=== PATIENT | male | born 1955 | race Two or more races ===

== ENCOUNTER 2022-06-15 17:52 | Inpatient (IN) | payer MEDICARE, MEDICAID ==
[~2022-06-15] VITALS: Ht 172.7 cm; Wt 120.2 kg
[2022-06-15] MEDS ORDERED: SODIUM CHLORIDE 0.9% 1000ML BAG (SEPSIS BOLUS) IV ONE (19:00)
[2022-06-15] MEDS ORDERED: VANCOMYCIN 1G PREMIX 200 ML IV ONE (19:00)
[2022-06-15] MEDS ORDERED: PIPERACILLIN/TAZ 3.375G PREMIX 50 ML IV ONE (19:00)
[2022-06-15 19:20] LABS: BASOPHILS % 1.7 % (0.0-2.0); EOSINOPHILS % 11.4 % (0.0-5.0); HEMATOCRIT. 37.1 % (42.0-52.0); HEMOGLOBIN. 12.5 g/dL (14.0-18.0); LYMPHOCYTES % 9.6 % (20.0-50.0); MEAN CORPUSCULAR VOLUME 86.4 fL (80.0-94.0); MEAN PLATELET VOLUME 9.4 fl (7.4-10.4); MONOCYTES % 7.1 % (2.0-8.0); NEUTROPHILS % 70.2 % (40.0-76.0); PLATELET 209 x1000/uL (130-400); RED BLOOD CELL COUNT 4.29 mill/uL (4.7-6.1); RED CELL DISTRIBUTION WIDTH 14.7 % (11.6-14.6)
[2022-06-15 19:31] LABS: PROTHROMBIN TIME 10.7 sec (9.6-11.0)
[2022-06-15] MEDS ORDERED: ONDANSETRON HCL 4MG/2ML INJ IV STA ×2 (19:33→22:27)
[2022-06-15] MEDS ORDERED: MORPHINE SULFATE 4 MG/ML CPJ (NOT FOR IM USE) IV STA ×2 (19:33→22:27)
[2022-06-15 19:38] LABS: CHLORIDE 98 mEq/L (98-107)
[2022-06-15 20:51] LABS: CLARITY URINE CLEAR (CLEAR); COLOR URINE YELLOW (YELLOW); SPECIFIC GRAVITY URINE 1.017 (1.005-1.030)
[2022-06-15 20:52] LABS: PROTEIN URINE 4+ (NEGATIVE)
[2022-06-15 20:53] LABS: KETONES URINE NEGATIVE (NEGATIVE)
[2022-06-15 20:54] LABS: LEUKOCYTE ESTERASE URINE NEGATIVE (NEGATIVE); NITRITE URINE NEGATIVE (NEGATIVE); OCCULT BLOOD URINE 2+ (NEGATIVE); UROBILINOGEN URINE 0.2 E.U./dL (0.2-1.0)
[2022-06-15] MEDS ORDERED: ASPIRIN 81MG TABLET PO ONE (23:45)
[2022-06-15] MEDS ORDERED: FUROSEMIDE 40MG/4ML VIAL IV ONE (23:45)
[2022-06-16] MEDS ORDERED: MORPHINE SULFATE 4 MG/ML CPJ (NOT FOR IM USE) IV ONE (01:00)
[2022-06-16] MEDS ORDERED: ACETAMINOPHEN 325MG TABLET PO ONE (01:00)
[2022-06-16] MEDS ORDERED: HYDRALAZINE 20MG/ML VIAL IV ONE (01:30)
[2022-06-16] MEDS ORDERED: IPRATROPIUM/ALBUTEROL 0.5-3(2.5)MG/3ML NEB HHN PRN (06:15)
[2022-06-16] MEDS ORDERED: ONDANSETRON HCL 4MG/2ML INJ IV PRN (06:15)
[2022-06-16] MEDS ORDERED: CLONIDINE 0.1MG TABLET PO PRN (06:15)
[2022-06-16] MEDS ORDERED: DIPHENHYDRAMINE 50MG/ML VIAL IV PRN (06:15)
[2022-06-16] MEDS ORDERED: GUAIFENESIN 200MG/10ML SUGAR FREE UDC PO PRN (06:15)
[2022-06-16] MEDS ORDERED: ACETAMINOPHEN 325MG TABLET PO PRN ×2 (06:15)
[2022-06-16] MEDS ORDERED: DOCUSATE SODIUM 100MG CAPSULE PO PRN (06:15)
[2022-06-16] MEDS ORDERED: MAGNESIUM/ALUMINUM HYDROXIDE/SIMETHICONE 30ML UDC PO PRN (06:15)
[2022-06-16] MEDS ORDERED: DEXTROSE 50% WATER 50ML SYRINGE IV PRN (06:30)
[2022-06-16 07:05] LABS: BASOPHILS % 1.2 % (0.0-2.0); EOSINOPHILS % 14.6 % (0.0-5.0); HEMATOCRIT. 36.3 % (42.0-52.0); HEMOGLOBIN. 12.1 g/dL (14.0-18.0); LYMPHOCYTES % 9.7 % (20.0-50.0); MEAN CORPUSCULAR VOLUME 87.2 fL (80.0-94.0); MEAN PLATELET VOLUME 9.2 fl (7.4-10.4); MONOCYTES % 7.3 % (2.0-8.0); NEUTROPHILS % 67.2 % (40.0-76.0); PLATELET 188 x1000/uL (130-400); RED BLOOD CELL COUNT 4.16 mill/uL (4.7-6.1); RED CELL DISTRIBUTION WIDTH 14.8 % (11.6-14.6)
[2022-06-16 07:12] LABS: CHLORIDE 103 mEq/L (98-107)
[2022-06-16 07:19] LABS: PHOSPHORUS 3.5 mg/dL (2.5-4.9); TOTAL IRON BINDING CAPACITY 212 ug/dL (250-450)
[2022-06-16 08:10] LABS: T4 FREE 1.04 ng/dL (0.76-1.46)
[2022-06-16] MEDS: MORPHINE SULFATE 2 MG/ML CPJ (NOT FOR IM USE) IV PRN ×3 (08:18→20:56)
[2022-06-16] MEDS ORDERED: PIPERACILLIN/TAZ 3.375G PREMIX 50 ML IV SCH (09:00)
[2022-06-16] MEDS: FUROSEMIDE 40MG/4ML VIAL IVP SCH (09:49)
[2022-06-16] MEDS: INSULIN LISPRO 100 UNITS/ML SUBCUT SCH ×4 (09:51→20:56)
[2022-06-16] MEDS ORDERED: VANCOMYCIN 750MG PMX (XELLIA) 150 ML IV SCH ×2 (10:00→20:00)
[2022-06-16] MEDS: BLOOD SUGAR DIAGNOSTIC STRIP TEST SCH ×3 (13:00→20:56)
[2022-06-16] MEDS: ENOXAPARIN 40MG/0.4ML SYR SUBCUT SCH (14:17)
[2022-06-16] MEDS: AMLODIPINE 10MG TABLET PO SCH (14:18)
[2022-06-16] MEDS: ASPIRIN 81MG TABLET PO SCH (14:18)
[2022-06-16] MEDS: PANTOPRAZOLE 40MG DR TABLET PO SCH (14:18)
[2022-06-16 14:39] VITALS: BP 145/75
[2022-06-16 16:00] VITALS: BP 148/62
[2022-06-16] MEDS ORDERED: CEFTRIAXONE 2 G PREMIX 50 ML IV SCH (16:45)
[2022-06-16] MEDS: CEFTRIAXONE 2 G in DEXTROSE 5% WATER 50 ML IV SCH (19:02)
[2022-06-16 20:00] VITALS: BP 139/65
[2022-06-17] VITALS: BP 152/60
[2022-06-17] MEDS: MORPHINE SULFATE 2 MG/ML CPJ (NOT FOR IM USE) IV PRN ×4 (02:12→20:50)
[2022-06-17 04:00] VITALS: BP 153/67
[2022-06-17] MEDS: BLOOD SUGAR DIAGNOSTIC STRIP TEST SCH ×4 (07:40→21:00)
[2022-06-17 08:00] VITALS: BP 162/77
[2022-06-17] MEDS: AMLODIPINE 10MG TABLET PO SCH (08:53)
[2022-06-17] MEDS: PANTOPRAZOLE 40MG DR TABLET PO SCH (08:53)
[2022-06-17] MEDS: ASPIRIN 81MG TABLET PO SCH (08:53)
[2022-06-17] MEDS: FUROSEMIDE 40MG/4ML VIAL IVP SCH (08:55)
[2022-06-17] MEDS: INSULIN LISPRO 100 UNITS/ML SUBCUT SCH ×6 (08:55→21:20)
[2022-06-17] MEDS: ENOXAPARIN 40MG/0.4ML SYR SUBCUT SCH (08:56)
[2022-06-17 12:00] VITALS: BP 141/67
[2022-06-17] MEDS ORDERED: VANCOMYCIN 500MG PREMIX 100 ML IV SCH (12:00)
[2022-06-17 14:36] LABS: EOSINOPHILS % 4.3 % (0.0-5.0); HEMATOCRIT. 36.4 % (42.0-52.0); HEMOGLOBIN. 12.3 g/dL (14.0-18.0); LYMPHOCYTES % 8.6 % (20.0-50.0); MEAN CORPUSCULAR HEMOGLOBIN 29.5 pg (28.0-32.0); MEAN CORPUSCULAR VOLUME 87.3 fL (80.0-94.0); MEAN PLATELET VOLUME 9.2 fl (7.4-10.4); MONOCYTES % 5.8 % (2.0-8.0); NEUTROPHILS % 80.3 % (40.0-76.0); PLATELET 227 x1000/uL (130-400); RED BLOOD CELL COUNT 4.17 mill/uL (4.7-6.1); RED CELL DISTRIBUTION WIDTH 15.6 % (11.6-14.6)
[2022-06-17 15:08] LABS: CHLORIDE 102 mEq/L (98-107)
[2022-06-17 16:00] VITALS: BP 143/71
[2022-06-17] MEDS: CEFTRIAXONE 2 G in DEXTROSE 5% WATER 50 ML IV SCH (17:36)
[2022-06-17 17:44] LABS: CREATINE KINASE 119 IU/L (39-308)
[2022-06-17 20:00] VITALS: BP 153/78
[2022-06-17] MEDS ORDERED: ZOLPIDEM TARTRATE 5MG TABLET PO PRN (21:00)
[2022-06-18] VITALS: BP 153/71
[2022-06-18] MEDS: MORPHINE SULFATE 2 MG/ML CPJ (NOT FOR IM USE) IV PRN ×6 (01:20→22:41)
[2022-06-18 04:00] VITALS: BP 158/76
[2022-06-18] MEDS: BLOOD SUGAR DIAGNOSTIC STRIP TEST SCH ×4 (06:40→21:00)
[2022-06-18 08:00] VITALS: BP 161/83
[2022-06-18 08:29] LABS: BASOPHILS % 0.9 % (0.0-2.0); EOSINOPHILS % 7.9 % (0.0-5.0); HEMATOCRIT. 36.9 % (42.0-52.0); HEMOGLOBIN. 12.2 g/dL (14.0-18.0); LYMPHOCYTES % 8.6 % (20.0-50.0); MEAN CORPUSCULAR HEMOGLOBIN 28.6 pg (28.0-32.0); MEAN CORPUSCULAR VOLUME 86.6 fL (80.0-94.0); MEAN PLATELET VOLUME 9.6 fl (7.4-10.4); MONOCYTES % 7.8 % (2.0-8.0); NEUTROPHILS % 74.8 % (40.0-76.0); PLATELET 200 x1000/uL (130-400); RED BLOOD CELL COUNT 4.26 mill/uL (4.7-6.1); RED CELL DISTRIBUTION WIDTH 15.2 % (11.6-14.6)
[2022-06-18] MEDS: ASPIRIN 81MG TABLET PO SCH (08:29)
[2022-06-18] MEDS: FAMOTIDINE 20MG TABLET PO SCH (08:29)
[2022-06-18] MEDS: ENOXAPARIN 40MG/0.4ML SYR SUBCUT SCH (08:29)
[2022-06-18] MEDS: FUROSEMIDE 40MG/4ML VIAL IVP SCH (08:30)
[2022-06-18] MEDS: AMLODIPINE 10MG TABLET PO SCH (08:31)
[2022-06-18] MEDS: INSULIN LISPRO 100 UNITS/ML SUBCUT SCH ×7 (08:33→22:42)
[2022-06-18 08:51] LABS: CHLORIDE 101 mEq/L (98-107)
[2022-06-18] MEDS ORDERED: VANCOMYCIN 1.25GM PMX (XELLIA) 250 ML IV SCH (10:00)
[2022-06-18 12:00] VITALS: BP 158/74
[2022-06-18 16:00] VITALS: BP 150/65
[2022-06-18] MEDS: CEFTRIAXONE 2 G in DEXTROSE 5% WATER 50 ML IV SCH (17:04)
[2022-06-18] MEDS ORDERED: NALOXONE HCL 0.4MG/ML VIAL IV PRN (18:15)
[2022-06-18 20:00] VITALS: BP 141/73
[2022-06-19] VITALS: BP 165/72
[2022-06-19] MEDS: MORPHINE SULFATE 2 MG/ML CPJ (NOT FOR IM USE) IV PRN ×2 (02:41→07:08)
[2022-06-19 04:00] VITALS: BP 152/72
[2022-06-19 06:34] LABS: EOSINOPHILS % 9.1 % (0.0-5.0); HEMATOCRIT. 39.3 % (42.0-52.0); MEAN CORPUSCULAR HEMOGLOBIN 28.7 pg (28.0-32.0); MEAN CORPUSCULAR VOLUME 86.3 fL (80.0-94.0); MEAN PLATELET VOLUME 9.7 fl (7.4-10.4); MONOCYTES % 7.7 % (2.0-8.0); NEUTROPHILS % 72.2 % (40.0-76.0); PLATELET 222 x1000/uL (130-400); RED BLOOD CELL COUNT 4.55 mill/uL (4.7-6.1); RED CELL DISTRIBUTION WIDTH 15.3 % (11.6-14.6)
[2022-06-19 07:19] LABS: CHLORIDE 101 mEq/L (98-107)
[2022-06-19 08:00] VITALS: BP 143/81
[2022-06-19] MEDS: AMLODIPINE 10MG TABLET PO SCH (08:49)
[2022-06-19] MEDS: ASPIRIN 81MG TABLET PO SCH (08:49)
[2022-06-19] MEDS: FUROSEMIDE 40MG/4ML VIAL IVP SCH (08:49)
[2022-06-19] MEDS: FAMOTIDINE 20MG TABLET PO SCH (08:49)
[2022-06-19] MEDS: INSULIN LISPRO 100 UNITS/ML SUBCUT SCH ×7 (08:55→21:11)
[2022-06-19] MEDS: BLOOD SUGAR DIAGNOSTIC STRIP TEST SCH ×4 (08:57→21:11)
[2022-06-19] MEDS: ENOXAPARIN 40MG/0.4ML SYR SUBCUT SCH (09:23)
[2022-06-19] MEDS ORDERED: CARVEDILOL 3.125 MG TABLET PO ONE (11:00)
[2022-06-19] MEDS ORDERED: ENOXAPARIN 80MG/0.8ML SYR SUBCUT NR (11:30)
[2022-06-19 12:00] VITALS: BP 147/93
[2022-06-19] MEDS ORDERED: DILTIAZEM HCL 30MG TABLET PO SCH (12:00)
[2022-06-19] MEDS: MAGNESIUM OXIDE 400MG TABLET PO SCH (12:44)
[2022-06-19] MEDS ORDERED: VANCOMYCIN 750MG PREMIX 150 ML IV NR (13:00)
[2022-06-19] MEDS: HYDROCODONE/ACETAMINOPHEN 5/325MG TABLET PO PRN ×2 (13:01→21:08)
[2022-06-19] MEDS ORDERED: CARVEDILOL 3.125 MG TABLET PO SCH (13:30)
[2022-06-19] MEDS: DILTIAZEM HCL 60MG TABLET PO SCH ×2 (13:53→21:07)
[2022-06-19 16:00] VITALS: BP 134/59
[2022-06-19] MEDS: CEFTRIAXONE 2 G in DEXTROSE 5% WATER 50 ML IV SCH (17:37)
[2022-06-19 20:00] VITALS: BP 131/63
[2022-06-19] MEDS: ATORVASTATIN CALCIUM 10MG TABLET PO SCH (21:08)
[2022-06-19] MEDS: CARVEDILOL 3.125 MG TABLET PO SCH (21:10)
[2022-06-19] MEDS: INSULIN GLARGINE 100 UNITS/ML SUBCUT SCH (21:12)
[2022-06-20] VITALS: BP 153/77
[2022-06-20] MEDS: MORPHINE SULFATE 2 MG/ML CPJ (NOT FOR IM USE) IV PRN ×4 (01:08→19:28)
[2022-06-20] MEDS: DILTIAZEM HCL 60MG TABLET PO SCH ×3 (05:55→21:25)
[2022-06-20] MEDS: INSULIN LISPRO 100 UNITS/ML SUBCUT SCH ×6 (06:12→21:24)
[2022-06-20] MEDS: BLOOD SUGAR DIAGNOSTIC STRIP TEST SCH ×4 (06:14→21:25)
[2022-06-20] MEDS ORDERED: LIDOCAINE HCL/PF 1% 10 MG/ML 5ML VIAL ONE ×2 (07:53→10:03)
[2022-06-20 08:00] VITALS: BP 146/65
[2022-06-20 08:04] LABS: EOSINOPHILS % 13.1 % (0.0-5.0); HEMATOCRIT. 35.2 % (42.0-52.0); HEMOGLOBIN. 11.8 g/dL (14.0-18.0); LYMPHOCYTES % 8.4 % (20.0-50.0); MEAN CORPUSCULAR HEMOGLOBIN 28.9 pg (28.0-32.0); MEAN CORPUSCULAR VOLUME 85.8 fL (80.0-94.0); MEAN PLATELET VOLUME 8.9 fl (7.4-10.4); MONOCYTES % 7.6 % (2.0-8.0); NEUTROPHILS % 67.9 % (40.0-76.0); PLATELET 244 x1000/uL (130-400); RED CELL DISTRIBUTION WIDTH 15.4 % (11.6-14.6)
[2022-06-20 08:25] LABS: CHLORIDE 100 mEq/L (98-107)
[2022-06-20] MEDS: FAMOTIDINE 20MG TABLET PO SCH (09:00)
[2022-06-20] MEDS: MAGNESIUM OXIDE 400MG TABLET PO SCH (09:00)
[2022-06-20] MEDS: ASPIRIN 81MG TABLET PO SCH (09:00)
[2022-06-20] MEDS: FUROSEMIDE 40MG/4ML VIAL IVP SCH (09:25)
[2022-06-20] MEDS: CARVEDILOL 3.125 MG TABLET PO SCH ×2 (09:25→21:26)
[2022-06-20] MEDS: ENOXAPARIN 120MG/0.8ML SYR SUBCUT SCH (11:00)
[2022-06-20 12:00] VITALS: BP 136/71
[2022-06-20 13:29] VITALS: BP 136/71
[2022-06-20 16:00] VITALS: BP 139/65
[2022-06-20] MEDS: CEFTRIAXONE 2 G in DEXTROSE 5% WATER 50 ML IV SCH (18:42)
[2022-06-20 20:00] VITALS: BP 138/73
[2022-06-20] MEDS: ATORVASTATIN CALCIUM 10MG TABLET PO SCH (21:25)
[2022-06-20] MEDS: INSULIN GLARGINE 100 UNITS/ML SUBCUT SCH (21:25)
[2022-06-20] MEDS: HYDROCODONE/ACETAMINOPHEN 5/325MG TABLET PO PRN (23:23)
[2022-06-21] VITALS: BP 143/73
[2022-06-21] MEDS: MORPHINE SULFATE 2 MG/ML CPJ (NOT FOR IM USE) IV PRN ×3 (03:38→21:06)
[2022-06-21 04:00] VITALS: BP 145/75
[2022-06-21] MEDS: DILTIAZEM HCL 60MG TABLET PO SCH ×3 (05:30→20:47)
[2022-06-21] MEDS: BLOOD SUGAR DIAGNOSTIC STRIP TEST SCH ×4 (07:40→20:48)
[2022-06-21] MEDS: INSULIN LISPRO 100 UNITS/ML SUBCUT SCH ×7 (07:40→20:47)
[2022-06-21 08:00] VITALS: BP 141/70
[2022-06-21] MEDS: MAGNESIUM OXIDE 400MG TABLET PO SCH (09:00)
[2022-06-21] MEDS: FAMOTIDINE 20MG TABLET PO SCH (09:00)
[2022-06-21] MEDS: ASPIRIN 81MG TABLET PO SCH (09:00)
[2022-06-21] MEDS: CARVEDILOL 3.125 MG TABLET PO SCH ×2 (09:00→20:31)
[2022-06-21] MEDS: FUROSEMIDE 40MG/4ML VIAL IVP SCH (09:14)
[2022-06-21] MEDS ORDERED: BUPIVACAINE HCL/PF 0.5% (5MG/ML) 10ML ONE (12:11)
[2022-06-21] MEDS ORDERED: LIDOCAINE HCL 1% 10 MG/ML 10ML VIAL ONE (12:11)
[2022-06-21] MEDS ORDERED: POLYMYXIN B SULFATE 500000 UNITS/VIAL ONE (12:11)
[2022-06-21] MEDS ORDERED: VANCOMYCIN 500MG PREMIX 100 ML IV NR (13:00)
[2022-06-21] MEDS ORDERED: PROPOFOL 200MG/20ML VIAL IV ONE (13:41)
[2022-06-21] MEDS ORDERED: FENTANYL CITRATE/PF 50MCG/ML 5ML VIAL ONE (13:41)
[2022-06-21 14:24] LABS: CREATINE KINASE 88 IU/L (39-308)
[2022-06-21] MEDS ORDERED: ONDANSETRON HCL 4MG/2ML INJ IV NR (14:45)
[2022-06-21] MEDS ORDERED: FENTANYL CITRATE/PF 50MCG/ML 2ML VIAL IV PRN (14:45)
[2022-06-21 16:45] VITALS: BP 156/89
[2022-06-21] MEDS: ENOXAPARIN 120MG/0.8ML SYR SUBCUT SCH (16:48)
[2022-06-21] MEDS: SODIUM CHLORIDE 0.45% 1,000 ML IV SCH ×2 (16:49→20:45)
[2022-06-21] MEDS: CEFTRIAXONE 2 G in DEXTROSE 5% WATER 50 ML IV SCH (17:45)
[2022-06-21 20:00] VITALS: BP 136/75
[2022-06-21] MEDS: HYDROCODONE/ACETAMINOPHEN 5/325MG TABLET PO PRN (20:31)
[2022-06-21] MEDS: ATORVASTATIN CALCIUM 10MG TABLET PO SCH (20:45)
[2022-06-21] MEDS: INSULIN GLARGINE 100 UNITS/ML SUBCUT SCH (20:47)
[2022-06-22] VITALS: BP 145/70
[2022-06-22] MEDS: MORPHINE SULFATE 2 MG/ML CPJ (NOT FOR IM USE) IV PRN ×3 (01:21→12:30)
[2022-06-22] MEDS: HYDROCODONE/ACETAMINOPHEN 5/325MG TABLET PO PRN ×4 (01:54→22:00)
[2022-06-22 04:00] VITALS: BP 155/66
[2022-06-22] MEDS: DILTIAZEM HCL 60MG TABLET PO SCH ×3 (05:29→21:47)
[2022-06-22] MEDS: BLOOD SUGAR DIAGNOSTIC STRIP TEST SCH ×4 (05:50→21:00)
[2022-06-22 08:00] VITALS: BP 146/71
[2022-06-22] MEDS: INSULIN LISPRO 100 UNITS/ML SUBCUT SCH ×7 (08:30→22:01)
[2022-06-22] MEDS: FAMOTIDINE 20MG TABLET PO SCH (08:31)
[2022-06-22] MEDS: MAGNESIUM OXIDE 400MG TABLET PO SCH (08:31)
[2022-06-22] MEDS: ASPIRIN 81MG TABLET PO SCH (08:31)
[2022-06-22] MEDS: CARVEDILOL 3.125 MG TABLET PO SCH ×2 (08:31→21:49)
[2022-06-22 09:44] LABS: BASOPHILS % 1.5 % (0.0-2.0); HEMATOCRIT. 35.1 % (42.0-52.0); HEMOGLOBIN. 11.5 g/dL (14.0-18.0); LYMPHOCYTES % 9.1 % (20.0-50.0); MEAN CORPUSCULAR HEMOGLOBIN 28.3 pg (28.0-32.0); MEAN CORPUSCULAR VOLUME 86.2 fL (80.0-94.0); MEAN PLATELET VOLUME 8.4 fl (7.4-10.4); MONOCYTES % 8.4 % (2.0-8.0); PLATELET 246 x1000/uL (130-400); RED BLOOD CELL COUNT 4.07 mill/uL (4.7-6.1); RED CELL DISTRIBUTION WIDTH 15.3 % (11.6-14.6)
[2022-06-22] MEDS: ENOXAPARIN 120MG/0.8ML SYR SUBCUT SCH ×2 (11:00→11:33)
[2022-06-22] MEDS: SODIUM CHLORIDE 0.45% 1,000 ML IV SCH (11:33)
[2022-06-22 12:00] VITALS: BP 152/75
[2022-06-22] MEDS ORDERED: CEFT2PIG IV (14:10)
[2022-06-22] MEDS ORDERED: COR3 PO (14:56)
[2022-06-22] MEDS ORDERED: INSU100I68 SQ (14:56)
[2022-06-22] MEDS ORDERED: INSU100I28 SQ (14:56)
[2022-06-22] MEDS ORDERED: ASPI-1160 PO (14:56)
[2022-06-22] MEDS ORDERED: ATOR10TA PO (14:56)
[2022-06-22] MEDS ORDERED: DILT60TA35 PO (14:56)
[2022-06-22 16:00] VITALS: BP 147/68
[2022-06-22] MEDS: CEFTRIAXONE 2 G in DEXTROSE 5% WATER 50 ML IV SCH (18:09)
[2022-06-22 20:00] VITALS: BP 145/71
[2022-06-22] MEDS: ATORVASTATIN CALCIUM 10MG TABLET PO SCH (21:48)
[2022-06-22] MEDS: INSULIN GLARGINE 100 UNITS/ML SUBCUT SCH (22:01)
[2022-06-23] VITALS: BP 148/68
[2022-06-23] MEDS: SODIUM CHLORIDE 0.45% 1,000 ML IV SCH ×2 (02:27→17:50)
[2022-06-23] MEDS: MORPHINE SULFATE 2 MG/ML CPJ (NOT FOR IM USE) IV PRN ×3 (02:35→21:19)
[2022-06-23 04:00] VITALS: BP 151/73
[2022-06-23] MEDS: DILTIAZEM HCL 60MG TABLET PO SCH ×3 (06:10→21:52)
[2022-06-23] MEDS: BLOOD SUGAR DIAGNOSTIC STRIP TEST SCH ×4 (07:40→21:00)
[2022-06-23 08:00] VITALS: BP 140/65
[2022-06-23] MEDS: ASPIRIN 81MG TABLET PO SCH (08:34)
[2022-06-23] MEDS: FAMOTIDINE 20MG TABLET PO SCH (08:34)
[2022-06-23] MEDS: CARVEDILOL 3.125 MG TABLET PO SCH ×2 (08:34→21:00)
[2022-06-23] MEDS: INSULIN LISPRO 100 UNITS/ML SUBCUT SCH ×7 (08:35→21:00)
[2022-06-23] MEDS: MAGNESIUM OXIDE 400MG TABLET PO SCH (08:37)
[2022-06-23] MEDS: ENOXAPARIN 120MG/0.8ML SYR SUBCUT SCH (11:00)
[2022-06-23] MEDS: HYDROCODONE/ACETAMINOPHEN 5/325MG TABLET PO PRN ×2 (11:14→17:49)
[2022-06-23 12:00] VITALS: BP 145/70
[2022-06-23 15:49] LABS: BASOPHILS % 1.8 % (0.0-2.0); EOSINOPHILS % 11.9 % (0.0-5.0); HEMATOCRIT. 35.3 % (42.0-52.0); HEMOGLOBIN. 11.9 g/dL (14.0-18.0); LYMPHOCYTES % 9.1 % (20.0-50.0); MEAN CORPUSCULAR HEMOGLOBIN 28.9 pg (28.0-32.0); MEAN CORPUSCULAR VOLUME 85.6 fL (80.0-94.0); MEAN PLATELET VOLUME 8.2 fl (7.4-10.4); MONOCYTES % 9.2 % (2.0-8.0); PLATELET 259 x1000/uL (130-400); RED BLOOD CELL COUNT 4.12 mill/uL (4.7-6.1); RED CELL DISTRIBUTION WIDTH 15.1 % (11.6-14.6)
[2022-06-23 16:00] VITALS: BP 141/79
[2022-06-23] MEDS ORDERED: CEFTRIAXONE 2 G PREMIX 50 ML IV SCH (18:00)
[2022-06-23] MEDS: CEFTRIAXONE 2 G in DEXTROSE 5% WATER 50 ML IV SCH (18:24)
[2022-06-23 20:00] VITALS: BP 145/76
[2022-06-23] MEDS: ATORVASTATIN CALCIUM 10MG TABLET PO SCH (21:00)
[2022-06-23] MEDS: INSULIN GLARGINE 100 UNITS/ML SUBCUT SCH (21:52)
[2022-06-24] VITALS (8 sets, daily range): BP systolic 133–189; BP diastolic 57–78
[2022-06-24] MEDS: MORPHINE SULFATE 2 MG/ML CPJ (NOT FOR IM USE) IV PRN ×2 (01:42→21:00)
[2022-06-24] MEDS: DILTIAZEM HCL 60MG TABLET PO SCH ×3 (06:00→21:46)
[2022-06-24] MEDS: BLOOD SUGAR DIAGNOSTIC STRIP TEST SCH ×4 (06:43→21:00)
[2022-06-24] MEDS: INSULIN LISPRO 100 UNITS/ML SUBCUT SCH ×7 (07:40→21:45)
[2022-06-24 08:22] LABS: BASOPHILS % 1.5 % (0.0-2.0); EOSINOPHILS % 10.3 % (0.0-5.0); HEMATOCRIT. 35.7 % (42.0-52.0); LYMPHOCYTES % 10.5 % (20.0-50.0); MEAN PLATELET VOLUME 8.5 fl (7.4-10.4); MONOCYTES % 7.4 % (2.0-8.0); NEUTROPHILS % 70.3 % (40.0-76.0); PLATELET 293 x1000/uL (130-400); RED BLOOD CELL COUNT 4.15 mill/uL (4.7-6.1); RED CELL DISTRIBUTION WIDTH 15.5 % (11.6-14.6)
[2022-06-24] MEDS: FAMOTIDINE 20MG TABLET PO SCH (08:49)
[2022-06-24] MEDS: ASPIRIN 81MG TABLET PO SCH (08:49)
[2022-06-24] MEDS: MAGNESIUM OXIDE 400MG TABLET PO SCH (08:50)
[2022-06-24] MEDS: CARVEDILOL 3.125 MG TABLET PO SCH ×2 (08:50→21:44)
[2022-06-24] MEDS: ENOXAPARIN 120MG/0.8ML SYR SUBCUT SCH (11:38)
[2022-06-24] MEDS: SODIUM CHLORIDE 0.45% 1,000 ML IV SCH (11:39)
[2022-06-24] MEDS: CEFTRIAXONE 2 G in DEXTROSE 5% WATER 50 ML IV SCH (17:22)
[2022-06-24] MEDS: ATORVASTATIN CALCIUM 10MG TABLET PO SCH (21:44)
[2022-06-24] MEDS: INSULIN GLARGINE 100 UNITS/ML SUBCUT SCH (21:45)
[2022-06-25] VITALS: BP 154/78
[2022-06-25] MEDS: MORPHINE SULFATE 2 MG/ML CPJ (NOT FOR IM USE) IV PRN ×2 (02:40→06:45)
[2022-06-25] MEDS: DILTIAZEM HCL 60MG TABLET PO SCH (06:00)
[2022-06-25] MEDS: SODIUM CHLORIDE 0.45% 1,000 ML IV SCH (06:28)
[2022-06-25] MEDS: INSULIN LISPRO 100 UNITS/ML SUBCUT SCH ×4 (07:40→13:21)
[2022-06-25] MEDS: BLOOD SUGAR DIAGNOSTIC STRIP TEST SCH ×2 (07:47→12:59)
[2022-06-25 08:00] VITALS: BP 158/97
[2022-06-25] MEDS: ASPIRIN 81MG TABLET PO SCH (08:20)
[2022-06-25] MEDS: FAMOTIDINE 20MG TABLET PO SCH (08:20)
[2022-06-25] MEDS: MAGNESIUM OXIDE 400MG TABLET PO SCH (08:20)
[2022-06-25] MEDS: CARVEDILOL 3.125 MG TABLET PO SCH (08:21)
[2022-06-25] MEDS: HYDROCODONE/ACETAMINOPHEN 5/325MG TABLET PO PRN (09:56)
[2022-06-25] MEDS: ENOXAPARIN 120MG/0.8ML SYR SUBCUT SCH (09:56)
[2022-06-25 10:40] LABS: BASOPHILS % 1.8 % (0.0-2.0); EOSINOPHILS % 9.4 % (0.0-5.0); HEMATOCRIT. 37.5 % (42.0-52.0); HEMOGLOBIN. 12.5 g/dL (14.0-18.0); LYMPHOCYTES % 10.3 % (20.0-50.0); MEAN CORPUSCULAR HEMOGLOBIN 28.3 pg (28.0-32.0); MEAN CORPUSCULAR VOLUME 85.1 fL (80.0-94.0); MEAN PLATELET VOLUME 8.3 fl (7.4-10.4); NEUTROPHILS % 69.5 % (40.0-76.0); PLATELET 297 x1000/uL (130-400); RED BLOOD CELL COUNT 4.41 mill/uL (4.7-6.1); RED CELL DISTRIBUTION WIDTH 15.6 % (11.6-14.6)
[2022-06-25 12:00] VITALS: BP 150/77
[2022-06-26] MEDS ORDERED: ENOXAPARIN 120MG/0.8ML SYR SUBCUT SCH (11:00)
== END 2022-06-25 14:10 | DRG 637 ==
LOC: ER 17:52 → 7WST 06-16 01:26 → EDBEDREQ 06-16 01:42 → EDBEDREQTM 06-16 01:42
PROVIDERS: ADMIT Hospitalist; ATTEND Hospitalist
PROC: 05HY33Z Insertion of Infusion Device into Upper Vein, Percutaneous Approach (ICD-10-PCS; 2022-06-20)
PROC: 0Y9M0ZZ Drainage of Right Foot, Open Approach (ICD-10-PCS; principal; 2022-06-21)
PROC: 0Y9M0ZX Drainage of Right Foot, Open Approach, Diagnostic (ICD-10-PCS; 2022-06-21)
DX: E11.69 Type 2 diabetes mellitus with other specified complication (principal); E43 Unspecified severe protein-calorie malnutrition; L03.115 Cellulitis of right lower limb; L03.116 Cellulitis of left lower limb; I13.0 Hypertensive heart and chronic kidney disease with heart failure and stage 1 through stage 4 chronic kidney disease, or unspecified chronic kidney disease; I48.92 Unspecified atrial flutter; M86.171 Other acute osteomyelitis, right ankle and foot; Z68.41 Body mass index [BMI] 40.0-44.9, adult; E11.621 Type 2 diabetes mellitus with foot ulcer; N17.0 Acute kidney failure with tubular necrosis; E11.65 Type 2 diabetes mellitus with hyperglycemia; N18.4 Chronic kidney disease, stage 4 (severe); E11.22 Type 2 diabetes mellitus with diabetic chronic kidney disease; E11.40 Type 2 diabetes mellitus with diabetic neuropathy, unspecified; E66.01 Morbid (severe) obesity due to excess calories; I50.9 Heart failure, unspecified; I16.0 Hypertensive urgency; I25.10 Atherosclerotic heart disease of native coronary artery without angina pectoris; E83.42 Hypomagnesemia; I89.0 Lymphedema, not elsewhere classified; D63.1 Anemia in chronic kidney disease; L97.519 Non-pressure chronic ulcer of other part of right foot with unspecified severity; E03.8 Other specified hypothyroidism; E03.9 Hypothyroidism, unspecified; E66.09 Other obesity due to excess calories; G47.33 Obstructive sleep apnea (adult) (pediatric); I48.0 Paroxysmal atrial fibrillation; Z95.1 Presence of aortocoronary bypass graft; Z87.891 Personal history of nicotine dependence; Z79.4 Long term (current) use of insulin; Z79.899 Other long term (current) drug therapy; Z79.82 Long term (current) use of aspirin; Z79.2 Long term (current) use of antibiotics; I25.2 Old myocardial infarction; Z20.822 Contact with and (suspected) exposure to COVID-19
CPT/HCPCS: 36415; 36573; 71045; 73630; 76770; 80048; 80053; 80202; 81003; 82550; 82607; 82728; 82746; 82962; 83036; 83540; 83550; 83605; 83735; 83880; 84100; 84145; 84439; 84443; 84481; 84484; 85025; 85651; 87070; 87075; 87077; 87186; 87426; 88304; 88311; 93005; 93306; 93923; 93970; 97022; 97162; 99285; C1725; J0360; J0696; J1650; J1815; J1940; J2270; J2405; J2543; J2704; J3010; J3370; J3490; J7060

== ENCOUNTER 2022-07-06 12:23 | Emergency (ER) | payer MEDICARE, MEDICAID ==
[~2022-07-06] VITALS: Ht 170.2 cm; Wt 91.0 kg
[~2022-07-06 12:23] MED LIST: ASPI-1160 PO; ATOR10TA PO; CEFT2PIG IV; COR3 PO; DILT60TA35 PO; INSU100I28 SQ; INSU100I68 SQ
[2022-07-06] MEDS ORDERED: LIDOCAINE HCL 1% 10 MG/ML 10ML VIAL ONE (13:50)
[2022-07-06 18:43] VITALS: BP 182/90
== END 2022-07-06 19:38 ==
LOC: ER 12:23
DX: Z45.2 Encounter for adjustment and management of vascular access device (principal); I11.0 Hypertensive heart disease with heart failure; I50.9 Heart failure, unspecified; E11.9 Type 2 diabetes mellitus without complications; Z79.4 Long term (current) use of insulin
CPT/HCPCS: 36569; 36573; 71045; 99284; C1725; J3490

== ENCOUNTER 2022-07-31 06:52 | Inpatient (IN) | payer MEDICARE, MEDICAID ==
[2022-07-31] VITALS (9 sets, daily range): BP systolic 132–168; BP diastolic 73–86
[~2022-07-31] VITALS: Ht 172.7 cm; Wt 126.2 kg
[2022-07-31 08:30] LABS: HEMATOCRIT. 34.3 % (42.0-52.0); MEAN CORPUSCULAR HEMOGLOBIN 27.4 pg (28.0-32.0); MEAN CORPUSCULAR VOLUME 85.8 fL (80.0-94.0); MEAN PLATELET VOLUME 8.7 fl (7.4-10.4); PLATELET 304 x1000/uL (130-400); RED CELL DISTRIBUTION WIDTH 16.6 % (11.6-14.6)
[2022-07-31 08:42] LABS: CHLORIDE 102 mEq/L (98-107)
[2022-07-31] MEDS ORDERED: FUROSEMIDE 40MG/4ML VIAL IV ONE (09:15)
[2022-07-31] MEDS ORDERED: ASPIRIN 81MG TABLET PO ONE (09:15)
[2022-07-31 09:39] LABS: BG CARBOXYHEMOGLOBIN 1.6 % (0.5-1.5); BG DEOXYHEMOGLOBIN 12.7 % (0.0-5.0); BG FRACTION INSPIRED OXYGEN 40; BG HCO3 ACT 20.5 mmol/L (22.0-26.0); BG METHEMOGLOBIN 0.3 % (0.0-1.5); BG OXYGEN SATURATION 87.1 % (92.0-98.5); BG OXYHEMOGLOBIN 85.4 % (94.0-97.0); BG PCO2 49.7 mmHg (35.0-45.0); BG PH 7.234 (7.350-7.450); BG PO2 55.9 mmHg (75.0-100.0); BG SAMPLE SITE RIGHT RADIAL; BG TOTAL HEMOGLOBIN 11.7 g/dL (12.0-18.0); BG VENT MODE NASAL CANNULA
[2022-07-31 10:27] LABS: PLATELET ESTIMATE NORMAL
[2022-07-31] MEDS ORDERED: CEFEPIME 1,000 MG in DEXTROSE 5% WATER 50 ML IV SCH (13:30)
[2022-07-31] MEDS ORDERED: ENOXAPARIN 40MG/0.4ML SYR SUBCUT SCH (14:00)
[2022-07-31 14:04] LABS: BG BASE EXCESS -8.3 mmol/L (-2.0-2.0); BG CARBOXYHEMOGLOBIN 0.3 % (0.5-1.5); BG DEOXYHEMOGLOBIN 3.4 % (0.0-5.0); BG FRACTION INSPIRED OXYGEN 80; BG HCO3 ACT 18.2 mmol/L (22.0-26.0); BG METHEMOGLOBIN 0.1 % (0.0-1.5); BG OXYGEN SATURATION 96.6 % (92.0-98.5); BG OXYHEMOGLOBIN 96.2 % (94.0-97.0); BG PCO2 41.4 mmHg (35.0-45.0); BG PH 7.262 (7.350-7.450); BG PO2 96.7 mmHg (75.0-100.0); BG SAMPLE SITE RIGHT RADIAL; BG TOTAL HEMOGLOBIN 11.7 g/dL (12.0-18.0); BG VENT MODE MASK - BIPAP
[2022-07-31] MEDS ORDERED: DEXTROSE 50% WATER 50ML SYRINGE IV PRN (14:45)
[2022-07-31] MEDS ORDERED: SODIUM POLYSTYRENE SULFONATE 15 G/60 ML BOT PO NR (14:45)
[2022-07-31] MEDS ORDERED: PNEUMOCOCCAL 23-VAL P-SAC VAC 0.5 ML IM ONE (16:30)
[2022-07-31 16:34] LABS: BG BASE EXCESS -3.9 mmol/L (-2.0-2.0); BG CARBOXYHEMOGLOBIN 0.3 % (0.5-1.5); BG DEOXYHEMOGLOBIN 4.9 % (0.0-5.0); BG FRACTION INSPIRED OXYGEN 80; BG HCO3 ACT 23.4 mmol/L (22.0-26.0); BG METHEMOGLOBIN 0.1 % (0.0-1.5); BG OXYGEN SATURATION 95.1 % (92.0-98.5); BG OXYHEMOGLOBIN 94.7 % (94.0-97.0); BG PCO2 52.5 mmHg (35.0-45.0); BG PH 7.266 (7.350-7.450); BG PO2 81.5 mmHg (75.0-100.0); BG SAMPLE SITE RIGHT RADIAL; BG TOTAL HEMOGLOBIN 11.3 g/dL (12.0-18.0); BG VENT MODE MASK - BIPAP
[2022-07-31] MEDS: IPRATROPIUM/ALBUTEROL 0.5-3(2.5)MG/3ML NEB HHN SCH ×2 (16:44→20:46)
[2022-07-31] MEDS: CEFEPIME 1,000 MG in DEXTROSE 5% WATER 50 ML IV SCH (17:03)
[2022-07-31] MEDS: BLOOD SUGAR DIAGNOSTIC STRIP TEST SCH ×2 (17:06→21:02)
[2022-07-31] MEDS: PANTOPRAZOLE SODIUM 40 MG/VIAL IV SCH (17:06)
[2022-07-31] MEDS: FUROSEMIDE 40MG/4ML VIAL IVP SCH (17:06)
[2022-07-31] MEDS: INSULIN LISPRO 100 UNITS/ML SUBCUT SCH ×2 (17:07→21:03)
[2022-07-31] MEDS ORDERED: LIDOCAINE HCL 1% 10 MG/ML 10ML VIAL INJ NR (21:00)
[2022-07-31] MEDS: CARVEDILOL 3.125 MG TABLET PO SCH (21:02)
[2022-07-31] MEDS: DILTIAZEM HCL 60MG TABLET PO SCH (21:55)
[2022-07-31] MEDS: INSULIN GLARGINE 100 UNITS/ML SUBCUT SCH (21:56)
[2022-08-01] VITALS (19 sets, daily range): BP systolic 125–154; BP diastolic 52–81
[2022-08-01] MEDS: CEFEPIME 1,000 MG in DEXTROSE 5% WATER 50 ML IV SCH ×2 (05:12→18:30)
[2022-08-01] MEDS: DILTIAZEM HCL 60MG TABLET PO SCH ×3 (05:14→22:49)
[2022-08-01] MEDS: BLOOD SUGAR DIAGNOSTIC STRIP TEST SCH ×4 (07:30→21:29)
[2022-08-01] MEDS: IPRATROPIUM/ALBUTEROL 0.5-3(2.5)MG/3ML NEB HHN SCH ×4 (08:10→20:42)
[2022-08-01] MEDS: FUROSEMIDE 40MG/4ML VIAL IVP SCH ×2 (09:11→18:30)
[2022-08-01] MEDS: PANTOPRAZOLE SODIUM 40 MG/VIAL IV SCH (09:11)
[2022-08-01] MEDS: CARVEDILOL 3.125 MG TABLET PO SCH ×2 (09:11→21:28)
[2022-08-01] MEDS: INSULIN LISPRO 100 UNITS/ML SUBCUT SCH ×4 (09:12→21:35)
[2022-08-01] MEDS: INSULIN GLARGINE 100 UNITS/ML SUBCUT SCH ×2 (09:13→21:36)
[2022-08-01] MEDS: ASPIRIN 81MG EC TABLET PO SCH (11:37)
[2022-08-01] MEDS: HYDROCODONE/ACETAMINOPHEN 5/325MG TABLET PO PRN ×2 (14:58→21:29)
[2022-08-01] MEDS ORDERED: NALOXONE HCL 0.4MG/ML VIAL IV PRN (15:00)
[2022-08-01 18:03] LABS: BASOPHILS % 1.3 % (0.0-2.0); EOSINOPHILS % 3.3 % (0.0-5.0); HEMATOCRIT. 32.8 % (42.0-52.0); HEMOGLOBIN. 10.5 g/dL (14.0-18.0); LYMPHOCYTES % 7.7 % (20.0-50.0); MEAN CORPUSCULAR HEMOGLOBIN 27.6 pg (28.0-32.0); MEAN CORPUSCULAR VOLUME 85.9 fL (80.0-94.0); MONOCYTES % 10.7 % (2.0-8.0); PLATELET 282 x1000/uL (130-400); RED BLOOD CELL COUNT 3.82 mill/uL (4.7-6.1); RED CELL DISTRIBUTION WIDTH 16.5 % (11.6-14.6)
[2022-08-01] MEDS: APIXABAN 2.5 MG TABLET PO SCH (18:30)
[2022-08-02] VITALS (12 sets, daily range): BP systolic 114–161; BP diastolic 57–85
[2022-08-02] MEDS: HYDROCODONE/ACETAMINOPHEN 5/325MG TABLET PO PRN ×2 (01:45→09:33)
[2022-08-02] MEDS: CEFEPIME 1,000 MG in DEXTROSE 5% WATER 50 ML IV SCH ×2 (05:29→17:59)
[2022-08-02] MEDS: DILTIAZEM HCL 60MG TABLET PO SCH ×3 (05:30→20:32)
[2022-08-02 07:40] LABS: BASOPHILS % 1.9 % (0.0-2.0); EOSINOPHILS % 6.9 % (0.0-5.0); HEMATOCRIT. 33.1 % (42.0-52.0); HEMOGLOBIN. 10.6 g/dL (14.0-18.0); LYMPHOCYTES % 9.1 % (20.0-50.0); MEAN CORPUSCULAR HEMOGLOBIN 27.3 pg (28.0-32.0); MEAN CORPUSCULAR VOLUME 85.3 fL (80.0-94.0); MONOCYTES % 10.5 % (2.0-8.0); NEUTROPHILS % 71.6 % (40.0-76.0); PLATELET 287 x1000/uL (130-400); RED BLOOD CELL COUNT 3.89 mill/uL (4.7-6.1); RED CELL DISTRIBUTION WIDTH 16.4 % (11.6-14.6)
[2022-08-02] MEDS: IPRATROPIUM/ALBUTEROL 0.5-3(2.5)MG/3ML NEB HHN SCH ×4 (08:27→20:44)
[2022-08-02] MEDS: BLOOD SUGAR DIAGNOSTIC STRIP TEST SCH ×4 (08:27→20:50)
[2022-08-02] MEDS: CARVEDILOL 3.125 MG TABLET PO SCH ×2 (08:28→20:32)
[2022-08-02] MEDS: FAMOTIDINE 20MG TABLET PO SCH (09:33)
[2022-08-02] MEDS: ASPIRIN 81MG EC TABLET PO SCH (09:34)
[2022-08-02] MEDS: FUROSEMIDE 40MG/4ML VIAL IVP SCH ×2 (09:34→17:00)
[2022-08-02] MEDS: INSULIN GLARGINE 100 UNITS/ML SUBCUT SCH ×2 (09:35→20:49)
[2022-08-02] MEDS: INSULIN LISPRO 100 UNITS/ML SUBCUT SCH ×4 (09:35→20:50)
[2022-08-02] MEDS: APIXABAN 2.5 MG TABLET PO SCH ×2 (09:42→17:59)
[2022-08-03] VITALS (14 sets, daily range): BP systolic 114–153; BP diastolic 56–87
[2022-08-03] MEDS: HYDROCODONE/ACETAMINOPHEN 5/325MG TABLET PO PRN ×2 (04:38→17:35)
[2022-08-03] MEDS: CEFEPIME 1,000 MG in DEXTROSE 5% WATER 50 ML IV SCH ×2 (04:38→17:35)
[2022-08-03] MEDS: DILTIAZEM HCL 60MG TABLET PO SCH ×3 (06:00→21:21)
[2022-08-03 06:31] LABS: HEMATOCRIT. 32.1 % (42.0-52.0); HEMOGLOBIN. 10.3 g/dL (14.0-18.0); MEAN CORPUSCULAR HEMOGLOBIN 27.2 pg (28.0-32.0); MEAN CORPUSCULAR VOLUME 84.7 fL (80.0-94.0); MEAN PLATELET VOLUME 9.1 fl (7.4-10.4); PLATELET 271 x1000/uL (130-400); RED BLOOD CELL COUNT 3.79 mill/uL (4.7-6.1); RED CELL DISTRIBUTION WIDTH 16.7 % (11.6-14.6)
[2022-08-03] MEDS: BLOOD SUGAR DIAGNOSTIC STRIP TEST SCH ×4 (07:08→21:21)
[2022-08-03] MEDS: IPRATROPIUM/ALBUTEROL 0.5-3(2.5)MG/3ML NEB HHN SCH ×4 (07:41→20:43)
[2022-08-03] MEDS: ASPIRIN 81MG EC TABLET PO SCH (08:44)
[2022-08-03] MEDS: APIXABAN 2.5 MG TABLET PO SCH ×2 (08:44→17:34)
[2022-08-03] MEDS: FAMOTIDINE 20MG TABLET PO SCH (08:44)
[2022-08-03] MEDS: FUROSEMIDE 40MG/4ML VIAL IVP SCH ×2 (08:45→17:34)
[2022-08-03] MEDS: CARVEDILOL 3.125 MG TABLET PO SCH ×2 (08:45→21:20)
[2022-08-03] MEDS: INSULIN LISPRO 100 UNITS/ML SUBCUT SCH ×4 (08:46→21:23)
[2022-08-03] MEDS: INSULIN GLARGINE 100 UNITS/ML SUBCUT SCH ×2 (10:35→21:22)
[2022-08-03 16:28] LABS: PLATELET ESTIMATE NORMAL
[2022-08-04] VITALS (12 sets, daily range): BP systolic 133–173; BP diastolic 57–93
[2022-08-04] MEDS: HYDROCODONE/ACETAMINOPHEN 5/325MG TABLET PO PRN ×3 (03:42→23:32)
[2022-08-04] MEDS: CEFEPIME 1,000 MG in DEXTROSE 5% WATER 50 ML IV SCH ×2 (04:58→19:11)
[2022-08-04] MEDS: DILTIAZEM HCL 60MG TABLET PO SCH ×3 (05:00→21:37)
[2022-08-04] MEDS: BLOOD SUGAR DIAGNOSTIC STRIP TEST SCH ×4 (07:30→21:37)
[2022-08-04 09:20] LABS: BASOPHILS % 1.6 % (0.0-2.0); EOSINOPHILS % 10.3 % (0.0-5.0); HEMATOCRIT. 32.5 % (42.0-52.0); HEMOGLOBIN. 10.7 g/dL (14.0-18.0); LYMPHOCYTES % 8.3 % (20.0-50.0); MEAN CORPUSCULAR HEMOGLOBIN 27.7 pg (28.0-32.0); MEAN CORPUSCULAR VOLUME 84.5 fL (80.0-94.0); MONOCYTES % 11.3 % (2.0-8.0); NEUTROPHILS % 68.5 % (40.0-76.0); PLATELET 288 x1000/uL (130-400); RED BLOOD CELL COUNT 3.85 mill/uL (4.7-6.1); RED CELL DISTRIBUTION WIDTH 16.6 % (11.6-14.6)
[2022-08-04] MEDS: IPRATROPIUM/ALBUTEROL 0.5-3(2.5)MG/3ML NEB HHN SCH ×3 (10:54→20:15)
[2022-08-04] MEDS: FUROSEMIDE 40MG/4ML VIAL IVP SCH ×2 (11:00→19:47)
[2022-08-04] MEDS: APIXABAN 2.5 MG TABLET PO SCH ×2 (11:48→19:47)
[2022-08-04] MEDS: ASPIRIN 81MG EC TABLET PO SCH (11:49)
[2022-08-04] MEDS: CARVEDILOL 3.125 MG TABLET PO SCH ×2 (11:49→21:37)
[2022-08-04] MEDS: FAMOTIDINE 20MG TABLET PO SCH (11:55)
[2022-08-04] MEDS ORDERED: MICAFUNGIN 150 MG in SODIUM CHLORIDE 0.9% 100 ML IV SCH (12:00)
[2022-08-04] MEDS: INSULIN GLARGINE 100 UNITS/ML SUBCUT SCH ×2 (12:49→21:40)
[2022-08-04] MEDS: INSULIN LISPRO 100 UNITS/ML SUBCUT SCH (21:39)
[2022-08-05] VITALS: BP 150/76
[2022-08-05] MEDS: IPRATROPIUM/ALBUTEROL 0.5-3(2.5)MG/3ML NEB HHN SCH ×5 (00:11→20:50)
[2022-08-05 00:24] LABS: EOSINOPHILS % 7.6 % (0.0-5.0); HEMATOCRIT. 31.9 % (42.0-52.0); HEMOGLOBIN. 10.4 g/dL (14.0-18.0); LYMPHOCYTES % 7.7 % (20.0-50.0); MEAN CORPUSCULAR HEMOGLOBIN 27.5 pg (28.0-32.0); MEAN CORPUSCULAR VOLUME 83.9 fL (80.0-94.0); MEAN PLATELET VOLUME 8.7 fl (7.4-10.4); MONOCYTES % 12.3 % (2.0-8.0); NEUTROPHILS % 70.4 % (40.0-76.0); PLATELET 281 x1000/uL (130-400); RED BLOOD CELL COUNT 3.79 mill/uL (4.7-6.1); RED CELL DISTRIBUTION WIDTH 16.1 % (11.6-14.6)
[2022-08-05 00:28] LABS: INR 1.2; PROTHROMBIN TIME 12.5 sec (9.6-11.0)
[2022-08-05] MEDS: ACETAMINOPHEN 325MG TABLET PO PRN (02:31)
[2022-08-05 04:00] VITALS: BP 144/60
[2022-08-05] MEDS: CEFEPIME 1,000 MG in DEXTROSE 5% WATER 50 ML IV SCH ×2 (05:10→17:26)
[2022-08-05] MEDS: DILTIAZEM HCL 60MG TABLET PO SCH ×4 (05:11→20:42)
[2022-08-05] MEDS: BLOOD SUGAR DIAGNOSTIC STRIP TEST SCH ×4 (07:40→20:42)
[2022-08-05 08:00] VITALS: BP 183/95
[2022-08-05] MEDS: INSULIN LISPRO 100 UNITS/ML SUBCUT SCH ×4 (08:10→20:42)
[2022-08-05 09:32] LABS: BASOPHILS % 1.7 % (0.0-2.0); EOSINOPHILS % 5.3 % (0.0-5.0); HEMATOCRIT. 33.7 % (42.0-52.0); HEMOGLOBIN. 10.8 g/dL (14.0-18.0); LYMPHOCYTES % 8.6 % (20.0-50.0); MEAN CORPUSCULAR VOLUME 84.5 fL (80.0-94.0); MONOCYTES % 11.5 % (2.0-8.0); NEUTROPHILS % 72.9 % (40.0-76.0); PLATELET 308 x1000/uL (130-400); RED BLOOD CELL COUNT 3.99 mill/uL (4.7-6.1); RED CELL DISTRIBUTION WIDTH 16.6 % (11.6-14.6)
[2022-08-05] MEDS: FUROSEMIDE 40MG/4ML VIAL IVP SCH ×2 (09:44→17:26)
[2022-08-05] MEDS: FLUCONAZOLE 100MG TABLET PO SCH (09:45)
[2022-08-05] MEDS: CARVEDILOL 6.25 MG TABLET PO SCH ×2 (09:45→20:42)
[2022-08-05] MEDS: FAMOTIDINE 20MG TABLET PO SCH (09:45)
[2022-08-05] MEDS: INSULIN GLARGINE 100 UNITS/ML SUBCUT SCH ×2 (09:45→20:42)
[2022-08-05 10:44] LABS: PHOSPHORUS 5.7 mg/dL (2.5-4.9)
[2022-08-05] MEDS ORDERED: OXYMETAZOLINE HCL NASAL SPRAY 15ML BOTHNSTRLS PRN (11:15)
[2022-08-05] MEDS ORDERED: LORAZEPAM 2MG/ML CPJ IV NR (15:30)
[2022-08-05 16:00] VITALS: BP 122/68
[2022-08-05 16:49] LABS: BG CARBOXYHEMOGLOBIN 0.4 % (0.5-1.5); BG DEOXYHEMOGLOBIN 17.2 % (0.0-5.0); BG FRACTION INSPIRED OXYGEN 21; BG HCO3 ACT 22.6 mmol/L (22.0-26.0); BG METHEMOGLOBIN 0.1 % (0.0-1.5); BG OXYGEN SATURATION 82.7 % (92.0-98.5); BG OXYHEMOGLOBIN 82.3 % (94.0-97.0); BG PCO2 42.5 mmHg (35.0-45.0); BG PH 7.343 (7.350-7.450); BG PO2 46.1 mmHg (75.0-100.0); BG SAMPLE SITE RIGHT RADIAL; BG TOTAL HEMOGLOBIN 11.3 g/dL (12.0-18.0); BG VENT MODE ROOM AIR
[2022-08-05] MEDS: METOLAZONE 2.5MG TABLET PO SCH (17:25)
[2022-08-05] MEDS: LINEZOLID 600MG TABLET PO SCH ×2 (17:26→23:00)
[2022-08-05 17:51] LABS: BASOPHILS % 1.3 % (0.0-2.0); EOSINOPHILS % 3.3 % (0.0-5.0); HEMATOCRIT. 31.9 % (42.0-52.0); HEMOGLOBIN. 10.4 g/dL (14.0-18.0); LYMPHOCYTES % 7.5 % (20.0-50.0); MEAN CORPUSCULAR HEMOGLOBIN 27.3 pg (28.0-32.0); MEAN CORPUSCULAR VOLUME 83.5 fL (80.0-94.0); MONOCYTES % 9.5 % (2.0-8.0); NEUTROPHILS % 78.4 % (40.0-76.0); PLATELET 295 x1000/uL (130-400); RED BLOOD CELL COUNT 3.82 mill/uL (4.7-6.1); RED CELL DISTRIBUTION WIDTH 16.3 % (11.6-14.6)
[2022-08-05 20:00] VITALS: BP 141/83
[2022-08-06] VITALS (10 sets, daily range): BP systolic 137–173; BP diastolic 61–95
[2022-08-06] MEDS: DILTIAZEM HCL 60MG TABLET PO SCH ×3 (05:53→22:22)
[2022-08-06 07:20] LABS: BASOPHILS % 1.6 % (0.0-2.0); EOSINOPHILS % 4.4 % (0.0-5.0); HEMATOCRIT. 32.2 % (42.0-52.0); HEMOGLOBIN. 10.7 g/dL (14.0-18.0); LYMPHOCYTES % 9.5 % (20.0-50.0); MEAN CORPUSCULAR HEMOGLOBIN 27.6 pg (28.0-32.0); MEAN CORPUSCULAR VOLUME 83.3 fL (80.0-94.0); MEAN PLATELET VOLUME 8.6 fl (7.4-10.4); MONOCYTES % 9.2 % (2.0-8.0); NEUTROPHILS % 75.3 % (40.0-76.0); PLATELET 313 x1000/uL (130-400); RED BLOOD CELL COUNT 3.87 mill/uL (4.7-6.1); RED CELL DISTRIBUTION WIDTH 16.2 % (11.6-14.6)
[2022-08-06] MEDS: BLOOD SUGAR DIAGNOSTIC STRIP TEST SCH ×4 (07:36→21:00)
[2022-08-06] MEDS: INSULIN LISPRO 100 UNITS/ML SUBCUT SCH ×4 (07:36→22:30)
[2022-08-06] MEDS: IPRATROPIUM/ALBUTEROL 0.5-3(2.5)MG/3ML NEB HHN SCH ×4 (08:08→20:50)
[2022-08-06] MEDS: INSULIN GLARGINE 100 UNITS/ML SUBCUT SCH ×3 (08:37→22:30)
[2022-08-06] MEDS: FUROSEMIDE 40MG/4ML VIAL IVP SCH ×2 (08:39→17:24)
[2022-08-06] MEDS: FLUCONAZOLE 100MG TABLET PO SCH (08:39)
[2022-08-06] MEDS: LINEZOLID 600MG TABLET PO SCH ×2 (08:39→22:26)
[2022-08-06] MEDS: METOLAZONE 2.5MG TABLET PO SCH ×3 (08:39→22:22)
[2022-08-06] MEDS: FAMOTIDINE 20MG TABLET PO SCH (08:40)
[2022-08-06] MEDS: CARVEDILOL 6.25 MG TABLET PO SCH ×2 (08:40→22:21)
[2022-08-06 09:41] LABS: BG BASE EXCESS 1.2 mmol/L (-2.0-2.0); BG CARBOXYHEMOGLOBIN 0.3 % (0.5-1.5); BG DEOXYHEMOGLOBIN 5.2 % (0.0-5.0); BG FRACTION INSPIRED OXYGEN 60; BG HCO3 ACT 27.4 mmol/L (22.0-26.0); BG METHEMOGLOBIN 0.4 % (0.0-1.5); BG OXYGEN SATURATION 94.8 % (92.0-98.5); BG OXYHEMOGLOBIN 94.1 % (94.0-97.0); BG PCO2 50.8 mmHg (35.0-45.0); BG PO2 76.1 mmHg (75.0-100.0); BG SAMPLE SITE LEFT BRACHIAL; BG TOTAL HEMOGLOBIN 11.1 g/dL (12.0-18.0); BG VENT MODE MASK - SIMPLE
[2022-08-06 09:54] LABS: HEMATOCRIT. 32.7 % (42.0-52.0); HEMOGLOBIN. 10.6 g/dL (14.0-18.0); MEAN PLATELET VOLUME 8.5 fl (7.4-10.4); PLATELET 321 x1000/uL (130-400); RED BLOOD CELL COUNT 3.94 mill/uL (4.7-6.1); RED CELL DISTRIBUTION WIDTH 16.4 % (11.6-14.6)
[2022-08-06] MEDS ORDERED: NALOXONE HCL 0.4MG/ML VIAL IV PRN (20:30)
[2022-08-06] MEDS: HYDROCODONE/ACETAMINOPHEN 5/325MG TABLET PO PRN (20:31)
[2022-08-07] MEDS: HYDROCODONE/ACETAMINOPHEN 5/325MG TABLET PO PRN ×3 (01:43→22:15)
[2022-08-07 02:00] VITALS: BP 154/85
[2022-08-07 05:57] LABS: BASOPHILS % 1.5 % (0.0-2.0); EOSINOPHILS % 6.8 % (0.0-5.0); HEMATOCRIT. 32.1 % (42.0-52.0); HEMOGLOBIN. 10.3 g/dL (14.0-18.0); LYMPHOCYTES % 9.7 % (20.0-50.0); MEAN CORPUSCULAR HEMOGLOBIN 26.7 pg (28.0-32.0); MEAN CORPUSCULAR VOLUME 83.1 fL (80.0-94.0); MEAN PLATELET VOLUME 8.6 fl (7.4-10.4); MONOCYTES % 11.9 % (2.0-8.0); NEUTROPHILS % 70.1 % (40.0-76.0); PLATELET 297 x1000/uL (130-400); RED BLOOD CELL COUNT 3.86 mill/uL (4.7-6.1); RED CELL DISTRIBUTION WIDTH 16.4 % (11.6-14.6)
[2022-08-07 06:00] VITALS: BP 139/75
[2022-08-07] MEDS: DILTIAZEM HCL 60MG TABLET PO SCH ×3 (06:34→22:15)
[2022-08-07 06:47] LABS: NUCLEATED RED BLOOD CELLS 1 /100 WBC
[2022-08-07 06:48] LABS: PLATELET ESTIMATE NORMAL
[2022-08-07] MEDS: BLOOD SUGAR DIAGNOSTIC STRIP TEST SCH ×4 (07:58→21:00)
[2022-08-07] MEDS: INSULIN LISPRO 100 UNITS/ML SUBCUT SCH ×4 (08:00→22:55)
[2022-08-07] MEDS: FUROSEMIDE 100MG/10ML VIAL IVP SCH ×2 (08:20→16:58)
[2022-08-07] MEDS: LINEZOLID 600MG TABLET PO SCH ×2 (08:21→22:15)
[2022-08-07] MEDS: CARVEDILOL 6.25 MG TABLET PO SCH ×2 (08:21→22:16)
[2022-08-07] MEDS: FAMOTIDINE 20MG TABLET PO SCH (08:23)
[2022-08-07] MEDS: FLUCONAZOLE 100MG TABLET PO SCH (08:23)
[2022-08-07] MEDS: IPRATROPIUM/ALBUTEROL 0.5-3(2.5)MG/3ML NEB HHN SCH ×4 (08:36→20:08)
[2022-08-07] MEDS: INSULIN GLARGINE 100 UNITS/ML SUBCUT SCH ×2 (09:25→22:56)
[2022-08-07] MEDS: METHYLPREDNISOLONE SOD SUCC 40 MG/ML VIAL IV SCH ×2 (09:27→17:01)
[2022-08-07 12:00] VITALS: BP 122/64
[2022-08-07 16:00] VITALS: BP 138/68
[2022-08-07] MEDS: METOLAZONE 2.5MG TABLET PO SCH (17:01)
[2022-08-07 20:00] VITALS: BP_SYST 129
[2022-08-08] VITALS (7 sets, daily range): BP systolic 135–169; BP diastolic 66–92
[2022-08-08] MEDS: METHYLPREDNISOLONE SOD SUCC 40 MG/ML VIAL IV SCH ×3 (01:26→23:13)
[2022-08-08] MEDS: BLOOD SUGAR DIAGNOSTIC STRIP TEST SCH ×4 (06:13→21:00)
[2022-08-08 06:35] LABS: HEMATOCRIT. 33.1 % (42.0-52.0); HEMOGLOBIN. 10.8 g/dL (14.0-18.0); MEAN CORPUSCULAR HEMOGLOBIN 26.9 pg (28.0-32.0); MEAN CORPUSCULAR VOLUME 82.9 fL (80.0-94.0); MEAN PLATELET VOLUME 8.5 fl (7.4-10.4); PLATELET 328 x1000/uL (130-400); RED BLOOD CELL COUNT 3.99 mill/uL (4.7-6.1)
[2022-08-08] MEDS: DILTIAZEM HCL 60MG TABLET PO SCH ×3 (06:44→23:12)
[2022-08-08] MEDS: IPRATROPIUM/ALBUTEROL 0.5-3(2.5)MG/3ML NEB HHN SCH ×4 (08:12→21:00)
[2022-08-08] MEDS: FAMOTIDINE 20MG TABLET PO SCH (08:30)
[2022-08-08] MEDS: METOLAZONE 2.5MG TABLET PO SCH ×2 (08:30→17:57)
[2022-08-08] MEDS: FLUCONAZOLE 100MG TABLET PO SCH (08:30)
[2022-08-08] MEDS: CARVEDILOL 6.25 MG TABLET PO SCH ×2 (08:33→23:12)
[2022-08-08] MEDS: LINEZOLID 600MG TABLET PO SCH ×2 (08:34→23:12)
[2022-08-08] MEDS: FUROSEMIDE 100MG/10ML VIAL IVP SCH ×2 (08:34→17:58)
[2022-08-08] MEDS: INSULIN LISPRO 100 UNITS/ML SUBCUT SCH ×4 (08:35→23:16)
[2022-08-08] MEDS: INSULIN GLARGINE 100 UNITS/ML SUBCUT SCH ×2 (10:25→23:16)
[2022-08-08 11:03] LABS: PLATELET ESTIMATE NORMAL
[2022-08-08] MEDS ORDERED: INSULIN LISPRO 100 UNITS/ML SUBCUT NR (12:30)
[2022-08-08] MEDS: HYDROCODONE/ACETAMINOPHEN 5/325MG TABLET PO PRN (23:57)
[2022-08-09] VITALS (7 sets, daily range): BP systolic 127–168; BP diastolic 68–94
[2022-08-09 05:40] LABS: HEMOGLOBIN. 10.3 g/dL (14.0-18.0); MEAN CORPUSCULAR HEMOGLOBIN 26.4 pg (28.0-32.0); MEAN PLATELET VOLUME 8.8 fl (7.4-10.4); PLATELET 348 x1000/uL (130-400); RED BLOOD CELL COUNT 3.91 mill/uL (4.7-6.1); RED CELL DISTRIBUTION WIDTH 16.5 % (11.6-14.6)
[2022-08-09] MEDS: DILTIAZEM HCL 60MG TABLET PO SCH ×3 (06:32→22:16)
[2022-08-09] MEDS: BLOOD SUGAR DIAGNOSTIC STRIP TEST SCH ×4 (07:30→21:00)
[2022-08-09] MEDS: INSULIN LISPRO 100 UNITS/ML SUBCUT SCH ×4 (08:00→22:18)
[2022-08-09] MEDS: IPRATROPIUM/ALBUTEROL 0.5-3(2.5)MG/3ML NEB HHN SCH ×4 (08:15→20:45)
[2022-08-09] MEDS: METHYLPREDNISOLONE SOD SUCC 40 MG/ML VIAL IV SCH (08:39)
[2022-08-09] MEDS: FUROSEMIDE 100MG/10ML VIAL IVP SCH ×2 (08:40→17:54)
[2022-08-09] MEDS: METOLAZONE 2.5MG TABLET PO SCH ×2 (08:40→17:54)
[2022-08-09] MEDS: FLUCONAZOLE 100MG TABLET PO SCH (08:40)
[2022-08-09] MEDS: FAMOTIDINE 20MG TABLET PO SCH (08:41)
[2022-08-09] MEDS: APIXABAN 5 MG TABLET PO SCH ×2 (08:41→22:16)
[2022-08-09] MEDS: CARVEDILOL 6.25 MG TABLET PO SCH ×2 (08:42→22:17)
[2022-08-09] MEDS: HYDROCODONE/ACETAMINOPHEN 5/325MG TABLET PO PRN ×2 (09:19→22:21)
[2022-08-09] MEDS: INSULIN GLARGINE 100 UNITS/ML SUBCUT SCH (09:22)
[2022-08-09] MEDS: LINEZOLID 600MG TABLET PO SCH ×2 (09:26→22:15)
[2022-08-09 20:37] LABS: PLATELET ESTIMATE NORMAL
[2022-08-09] MEDS ORDERED: INSULIN GLARGINE 100 UNITS/ML SUBCUT SCH (22:00)
[2022-08-10 04:00] VITALS: BP 157/95
[2022-08-10] MEDS: DILTIAZEM HCL 60MG TABLET PO SCH (04:57)
[2022-08-10] MEDS: HYDROCODONE/ACETAMINOPHEN 5/325MG TABLET PO PRN ×2 (04:58→15:14)
[2022-08-10 06:53] LABS: HEMATOCRIT. 33.4 % (42.0-52.0); HEMOGLOBIN. 10.9 g/dL (14.0-18.0); MEAN CORPUSCULAR HEMOGLOBIN 27.1 pg (28.0-32.0); MEAN CORPUSCULAR VOLUME 83.2 fL (80.0-94.0); MEAN PLATELET VOLUME 8.8 fl (7.4-10.4); PLATELET 343 x1000/uL (130-400); RED BLOOD CELL COUNT 4.02 mill/uL (4.7-6.1); RED CELL DISTRIBUTION WIDTH 16.3 % (11.6-14.6)
[2022-08-10] MEDS: IPRATROPIUM/ALBUTEROL 0.5-3(2.5)MG/3ML NEB HHN SCH ×2 (08:10→15:32)
[2022-08-10] MEDS: BLOOD SUGAR DIAGNOSTIC STRIP TEST SCH ×2 (09:00→12:56)
[2022-08-10] MEDS ORDERED: PREDNISONE 20MG TABLET PO SCH (09:00)
[2022-08-10] MEDS: INSULIN LISPRO 100 UNITS/ML SUBCUT SCH ×2 (09:31→15:13)
[2022-08-10] MEDS: FUROSEMIDE 100MG/10ML VIAL IVP SCH (09:32)
[2022-08-10] MEDS: FLUCONAZOLE 100MG TABLET PO SCH (09:32)
[2022-08-10] MEDS: METOLAZONE 2.5MG TABLET PO SCH (09:33)
[2022-08-10] MEDS: FAMOTIDINE 20MG TABLET PO SCH (09:33)
[2022-08-10] MEDS: APIXABAN 5 MG TABLET PO SCH (09:33)
[2022-08-10] MEDS: CARVEDILOL 6.25 MG TABLET PO SCH (09:36)
[2022-08-10] MEDS: ACETAMINOPHEN 325MG TABLET PO PRN (09:37)
[2022-08-10] MEDS: LINEZOLID 600MG TABLET PO SCH (09:37)
[2022-08-10] MEDS ORDERED: INSULIN GLARGINE 100 UNITS/ML SUBCUT SCH (10:00)
[2022-08-10 15:08] VITALS: BP 145/77
[2022-08-10 15:10] LABS: PLATELET ESTIMATE NORMAL
== END 2022-08-10 15:40 | DRG 193 ==
LOC: ER 07:06 → EDBEDREQTM 09:57 → EDBEDREQSVC 09:57 → EDBEDREQ 09:58 → ENRESERV 10:29 → SUPCPDRO 13:51 → 5EST 13:53 → 7WST 08-04 22:45 → 5EST 08-06 00:35
PROVIDERS: ADMIT Internal Medicine; ATTEND Internal Medicine
PROC: 5A09457 Assistance with Respiratory Ventilation, 24-96 Consecutive Hours, Continuous Positive Airway Pressure (ICD-10-PCS; principal; 2022-07-31)
PROC: 0HBMXZZ Excision of Right Foot Skin, External Approach (ICD-10-PCS; 2022-08-04)
PROC: 0HBMXZZ Excision of Right Foot Skin, External Approach (ICD-10-PCS; 2022-08-08)
DX: J18.9 Pneumonia, unspecified organism (principal); G93.41 Metabolic encephalopathy; J96.01 Acute respiratory failure with hypoxia; I50.23 Acute on chronic systolic (congestive) heart failure; N17.0 Acute kidney failure with tubular necrosis; I13.0 Hypertensive heart and chronic kidney disease with heart failure and stage 1 through stage 4 chronic kidney disease, or unspecified chronic kidney disease; E44.0 Moderate protein-calorie malnutrition; E87.1 Hypo-osmolality and hyponatremia; Z68.41 Body mass index [BMI] 40.0-44.9, adult; J44.0 Chronic obstructive pulmonary disease with (acute) lower respiratory infection; G82.20 Paraplegia, unspecified; I48.92 Unspecified atrial flutter; N18.4 Chronic kidney disease, stage 4 (severe); M86.8X7 Other osteomyelitis, ankle and foot; E03.9 Hypothyroidism, unspecified; E87.5 Hyperkalemia; I87.2 Venous insufficiency (chronic) (peripheral); L97.519 Non-pressure chronic ulcer of other part of right foot with unspecified severity; E11.621 Type 2 diabetes mellitus with foot ulcer; E11.22 Type 2 diabetes mellitus with diabetic chronic kidney disease; E11.40 Type 2 diabetes mellitus with diabetic neuropathy, unspecified; E66.01 Morbid (severe) obesity due to excess calories; Z20.822 Contact with and (suspected) exposure to COVID-19; I25.10 Atherosclerotic heart disease of native coronary artery without angina pectoris; E78.5 Hyperlipidemia, unspecified; I48.0 Paroxysmal atrial fibrillation; G47.33 Obstructive sleep apnea (adult) (pediatric); N50.89 Other specified disorders of the male genital organs; R04.0 Epistaxis; E88.09 Other disorders of plasma-protein metabolism, not elsewhere classified; E11.69 Type 2 diabetes mellitus with other specified complication; Z91.199 Patient's noncompliance with other medical treatment and regimen due to unspecified reason; Z83.3 Family history of diabetes mellitus; Z82.49 Family history of ischemic heart disease and other diseases of the circulatory system; Z95.1 Presence of aortocoronary bypass graft; Z79.01 Long term (current) use of anticoagulants; Z79.82 Long term (current) use of aspirin; Z88.8 Allergy status to other drugs, medicaments and biological substances; Z79.4 Long term (current) use of insulin; Z79.899 Other long term (current) drug therapy
CPT/HCPCS: 36415; 36600; 71045; 73620; 76705; 76770; 80048; 80053; 82140; 82375; 82805; 82962; 83036; 83735; 83880; 84100; 84145; 84443; 84484; 85025; 87077; 87186; 87426; 93005; 93306; 94640; 94660; 97162; 99285; A6261; C1893; C9113; C9803; J0692; J1650; J1815; J1940; J2060; J2248; J2920; J3490; J7050; J7060; J7512